=== PATIENT | female | born 1940 | race Caucasian/White ===

== ENCOUNTER → 2017-04-24 | Outpatient (CLI) | payer MEDICARE, BC | LOC: COL.RAD 08:06 | DX: K80.20 Calculus of gallbladder without cholecystitis without obstruction (principal); M54.14 Radiculopathy, thoracic region ==

== ENCOUNTER → 2018-07-15 | Outpatient (CLI) | payer MEDICARE, BC | LOC: MC.RAD 09:47 | DX: Z12.31 Encounter for screening mammogram for malignant neoplasm of breast (principal) ==

== ENCOUNTER 2019-01-21 07:16 | Day surgery (SDC) | payer MEDICARE, BC ==
[~2019-01-21] VITALS: Ht 160 cm; Wt 86.6 kg
[2019-01-21] VITALS (7 sets, daily range): BP systolic 96–132; BP diastolic 44–86; PULSE 51–73; TEMP 98.5
[2019-01-21] MEDS ORDERED: COZAAR100 MG PO (08:06)
[2019-01-21] MEDS ORDERED: SYNTHROID0.05 MG/TA PO (08:07)
[2019-01-21] MEDS ORDERED: HCTZ 25MG TAB25 MG PO (08:07)
[2019-01-21] MEDS ORDERED: MELATONIN 3MG PO (08:08)
[2019-01-21] MEDS ORDERED: MEVACOR 20M20 MG/TAB PO (08:08)
[2019-01-21] MEDS ORDERED: EPA FISH OIL1 SGL PO (08:08)
--- NOTE | 2019-01-21 08:09 | NUR ---
TO FERNANDEZ AT 0732- CALL LIGHT IN REACH
--- NOTE | 2019-01-21 10:46 | NUR ---
TO RM 7 PER CART FROM [facility] ALERT ORIENTED X3, TALKING TO STAFF AND . C/O PAIN 2/10 AND DENIES NEED FOR PAIN MED AT THIS TIME. DENIES NAUSEA OR VOMITING.
--- NOTE | 2019-01-21 11:01 | NUR ---
DRESSING CLEAN DRY AND INTACT. RECEIVED WATER - SITTING UP DRINKING AND TALKING WITH .
[2019-01-21] MEDS ORDERED: NORCO 325 MG-51 TAB PO (11:06)
[2019-01-21] MEDS ORDERED: COLACE 100100 MG/CAP PO (11:06)
[2019-01-21] MEDS ORDERED: MOTRIN 600600 MG/TAB PO (11:06)
--- NOTE | 2019-01-21 11:16 | NUR ---
RECEIVED RUSS. PUBRENTONING
--- NOTE | 2019-01-21 11:31 | NUR ---
ATE 100% AND TOLERATED WELL.
--- NOTE | 2019-01-21 12:45 | NUR ---
RECEIVED DISCHARGE INSTRUCTIONS AND VERBALIZED UNDERSTANDING. DISCONTINUED IV AND INT- CATHETER INTACT
--- NOTE | 2019-01-21 13:00 | NUR ---
DISCHARGED PER WC BY NURSING STAFF TO PRIVATE CAR IN CARE OF .
== END 2019-01-21 13:00 | disposition home or self-care (01) ==
LOC: SDCO 07:16
DX: K42.9 Umbilical hernia without obstruction or gangrene (principal); I10 Essential (primary) hypertension; E03.9 Hypothyroidism, unspecified; Z83.3 Family history of diabetes mellitus; Z82.49 Family history of ischemic heart disease and other diseases of the circulatory system; Z80.3 Family history of malignant neoplasm of breast; Z88.2 Allergy status to sulfonamides; Z90.49 Acquired absence of other specified parts of digestive tract
CPT/HCPCS: C1781; J0690; J1100; J1885; J2405; J2704; J3010; J7120